=== PATIENT | male | born 1995 | race Caucasian/White ===

== ENCOUNTER 2018-07-06 18:06 | Emergency (ER) | payer OTHER ==
[2018-07-06] MEDS ORDERED: BUPIVACAINE 0.5% PF 10 ML VIAL SUBQ STA (18:11)
[2018-07-06 18:14] VITALS: BP 121/65
--- NOTE | 2018-07-06 18:16 | ED Physician Documentation ---
PD HPI UPPER EXT INJURY - Stated complaint Stated Complaint: PARTIAL FINGER AMPUTATION - Chief complaint Chief Complaint: Trauma Ext - History obtained from History obtained from: Patient - History of Present Illness Location: Left, Finger (ring) Timing - onset: How many minutes ago (20) Timing - duration: Minutes (20) Timing - details: Abrupt onset Pain level max: 10 Pain level now: 9 Improved by: Rest, Ice Worsened by: Moving, Palpating Associated symptoms: No: Weakness, Numbness, Tingling, Swelling Contributing factors: No: Anticoagulated Recently seen: Not recently seen - Additonal information Additional information: Patient is right-handed. He dropped a weight on the finger today lacerating the finger. Review of Systems Constitutional: denies: Fever GI: denies: Vomiting Musculoskeletal: denies: Neck pain, Back pain Neurologic: denies: Focal weakness, Numbness, Headache PD PAST MEDICAL HISTORY - Past Medical History Past Medical History: No - Past Surgical History Past Surgical History: No - Present Medications Home Medications: Ambulatory Orders Medication Instructions Recorded Confirmed Cephalexin [Keflex] 500 mg PO Q6H #28 capsule 07/06/18 - Allergies Allergies/Adverse Reactions: Allergies Allergy/AdvReac Type Severity Reaction Status Date / Time No Known Drug Allergies Allergy Verified 07/06/18 18:14 - Living Situation Living Arrangement: reports: At home - Social History Does the pt have substance abuse?: No - Family History Family history: reports: Non contributory - Immunizations Immunizations are current?: Yes Immunizations: TDAP current <10years PD ED PE NORMAL - Vitals Vital signs reviewed: Yes - General General: Alert and oriented X 3, No acute distress - Derm Derm: Warm and dry - Extremities Extremities: Other (Left hand, fourth digit with a near complete avulsion of the pad of the finger just distal to the nail, volar aspect is still attached. Still has sensation.) - Neuro Neuro: Alert and oriented X 3 Results - Vitals Vitals: Vital Signs - 24 hr 07/06/18 18:10 Temperature 36.3 C L Heart Rate 72 Respiratory 16 Rate Blood Pressure 121/65 O2 Saturation 100 Oxygen O2 Source Room air - Rads (name of study) Left fourth digit Radiology: Prelim report reviewed, EMP read contemporaneously, See rad report (Mildly displaced transverse fracture through the distal tuft) Procedures - Laceration (location) Left fourth digit Length in cm: 3 Wound type: Curved, Into muscle, Clean Neurovascular status: Sensory intact, Motor intact, Vascular intact Anesthesia: Marcaine 0.5% Wound Preparation: Irrigated copiously NS, Wound explored, To the base. No: FB identified Skin layer closure: Nylon, Interrupted, Size #-0 - enter number (4) Other: Patient tolerated well, No complications, Neurovascular intact, Dressing applied, Tetanus UTD Complexity: Simple PD MEDICAL DECISION MAKING - ED course Complexity details: reviewed results, re-evaluated patient, considered differential, d/w patient ED course: Patient with a near complete amputation of the tip of the finger. The amputated portion was replaced and sewn back onto the wound. It appears to have a good blood supply still and is pink. Patient counseled that this may off in a few days. Will place on Keflex for the fracture. We will have him follow-up with his doctor for further evaluation and care. Patient counseled regarding signs and symptoms for which I believe and urgent re-evaluation would be necessary. Patient with good understanding of and agreement to plan and is comfortable going home at this time This document was made in part using voice recognition software. While efforts are made to proofread this document, sound alike and grammatical errors may occur. Warnings of infection and instructions on wound care given at bedside. Also counseled on how to minimize scarring. Departure - Departure Disposition: 01 Home, Self Care Clinical Impression: Traumatic amputation of left ring finger Fracture of phalanx of left ring finger Qualifiers: Encounter type: initial encounter Fracture type: open Phalanx: distal Fracture alignment: displaced Qualified Code(s): S62.635B - Displaced fracture of distal phalanx of left ring finger, initial encounter for open fracture Condition: Good Instructions: ED Fx Finger Open, ED Laceration Hand Follow-Up: REILLY Dorsey [Provider Group] - Within 3 Days Prescriptions: Cephalexin [Keflex] 500 mg PO Q6H #28 capsule Comments: Return if you worsen. Keep the wound clean. Follow-up with your doctor for further care. You need a wound check within 3 days to ensure there is no infection. The sutures should be removed in approximately 14 days. Discharge Date/Time: 07/06/18 19:37
--- NOTE | 2018-07-06 18:50 | XRAY Report ---
Reason: ring finger vs weight Procedure Date: 07/06/2018 Accession Number: [id number] / [id number] Procedure: XR - Finger(s) LT CPT Code: FULL RESULT: EXAM: LEFT FOURTH DIGIT RADIOGRAPHY EXAM DATE: 07/06/2018 06:34 PM. CLINICAL HISTORY: Distal right 4th digit laceration after dropping weight on hand today. COMPARISON: None. TECHNIQUE: 3 views. FINDINGS: Bones: There is a mildly displaced transverse fracture through the tuft of the distal fourth phalanx. Joints: Normal. No subluxations. Soft Tissues: Soft tissue injury distally. IMPRESSION: Mildly displaced transverse fracture through tuft of distal fourth phalanx. [facility]
[2018-07-06] MEDS ORDERED: cephALEXin 250 MG CAPSULE PO STA (19:07)
[2018-07-06] MEDS ORDERED: BACITRACIN OINT TOP STA (19:24)
== END 2018-07-06 19:37 | disposition home or self-care (01) ==
LOC: ED 18:06
DX: S68.125A Partial traumatic metacarpophalangeal amputation of left ring finger, initial encounter (principal); S62.635B Displaced fracture of distal phalanx of left ring finger, initial encounter for open fracture; W20.8XXA Other cause of strike by thrown, projected or falling object, initial encounter
CPT/HCPCS: 12002; 73140; 99283; A9270